=== PATIENT | male | born 1965 | race Caucasian/White ===

== ENCOUNTER 2018-07-06 12:29 | Emergency (ER) | payer BC, OTHER ==
[2018-07-06 13:57] LABS: INFLUENZA A NEGATIVE (NEGATIVE); INFLUENZA B NEGATIVE (NEGATIVE)
[2018-07-06 15:41] LABS: HEMATOCRIT 42.7 % (42.0-52.0); HEMOGLOBIN 14.6 gm/dl (14.0-18.0); MEAN CELL VOLUME 89.5 fl (81-97); MEAN CORPUSCULAR HEMOGLOBIN 30.6 pg (27-33); MEAN CORPUSCULAR HGB CONC 34.2 g/dl (32-36); MEAN PLATELET VOLUME 10.9 fl (7.4-10.4); PLATELET COUNT 138 K/uL (130-400); RED BLOOD COUNT 4.77 M/uL (4.40-5.70); RED CELL DISTRIBUTION WIDTH 12.3 % (11.5-14.5)
[2018-07-06 15:50] LABS: BLOOD UREA NITROGEN 15 mg/dL (6-20); CREATININE 1.2 mg/dL (0.7-1.2); EST GLOMERULAR FILTRATION RATE > 60 mL/min
[2018-07-06 15:53] LABS: GLUCOSE,RANDOM 107 mg/dL (74-109)
--- NOTE | 2018-07-06 16:38 | Emergency Department Record ---
History of Present Illness - General Chief complaint: Flu Like Symptoms Stated complaint: BODY ACHE/FEVER Time Seen by Provider: 07/06/18 13:14 Source: Patient Mode of Arrival: Ambulatory Limitations: No limitations - History of Present Illness Initial comments: pt has been sick for days with fever, sob, body aches and cough MD Complaint: Lack of energy Onset/Timin -: Days(s) Location: Generalized Consistency: Constant Improves with: None Worsens with: None Associated Symptoms: Myalgias - [place] Coma Scale Eye Response: (4) Open spontaneously Motor Response: (6) Obeys commands Verbal Response: (5) Oriented [place] Total: 15 - Related Data Previous Rx's Medication Instructions Recorded Amoxicillin/Potassium Clav 1 tab PO BID #20 tab 07/06/18 [Augmentin 875-125 Tablet] Allergies Allergy/AdvReac Type Severity Reaction Status Date / Time codeine Allergy RASH Verified 07/06/18 12:56 hydrocodone bitartrate Allergy RASH Verified 07/06/18 12:56 [From Vicodin] Travel Screening - Travel/Exposure Within Last 30 Days Have you traveled within the last 30 days?: Yes Location Detail:: [facility],[place], [place], [place] - Travel/Exposure Within Last Year Have you traveled outside the [place] in the last year?: No - Additonal Travel Details Have you been exposed to anyone with a communicable illness?: No - Travel Symptoms Symptom Screening: None Review of Systems Reviewed: No additional complaints except as noted below Constitutional: Reports: As per HPI. Denies: Chills, Fever, Malaise, Night sweats, Weakness, Weight change Eyes: Reports: As per HPI. Denies: Eye discharge, Eye pain, Photophobia, Vision change ENT: Reports: As per HPI. Denies: Congestion, Dental pain, Ear pain, Epistaxis , Hearing loss, Throat pain Respiratory: Reports: As per HPI, Cough. Denies: Dyspnea, Hemoptysis, Stridor, Wheezes Cardiovascular: Reports: As per HPI. Denies: Arrhythmia, Chest pain, Dyspnea on exertion, Edema, Murmurs, Orthopnea, Palpitations, Paroxysmal nocturnal dyspnea, Rheumatic Fever, Syncope Endocrine: Reports: As per HPI. Denies: Fatigue, Heat or cold intolerance, Polydipsia, Polyuria Gastrointestinal: Reports: As per HPI. Denies: Abdominal pain, Constipation, Diarrhea, Hematemesis, Hematochezia, Melena, Nausea, Vomiting Genitourinary: Reports: As per HPI. Denies: Dysuria, Frequency, Hematuria, Incontinence, Retention, Testicular pain, Testicular mass, Urgency Musculoskeletal: Reports: As per HPI. Denies: Arthralgia, Back pain, Gout, Joint swelling, Myalgia, Neck pain Skin: Reports: As per HPI. Denies: Bruising, Change in color, Change in hair/ nails, Lesions, Pruritus, Rash Neurological: Reports: As per HPI. Denies: Abnormal gait, Confusion, Headache, Numbness, Paresthesias, Seizure, Tingling, Tremors, Vertigo, Weakness Psychiatric: Reports: As per HPI. Denies: Anxiety, Auditory hallucinations, Depression, Homicidal thoughts, Suicidal thoughts, Visual hallucinations Hematological/Lymphatic: Reports: As per HPI. Denies: Anemia, Blood Clots, Easy bleeding, Easy bruising, Swollen glands Past Medical History - SOCIAL HISTORY Smoking Status: Current every day smoker Alcohol Use: None Drug Use: None - RESPIRATORY Hx Respiratory Disorders: No - CARDIOVASCULAR Hx Cardio Disorders: No - NEURO Hx Neuro Disorders: No - GI Hx GI Disorders: No - Hx Genitourinary Disorders: No - ENDOCRINE Hx Endocrine Disorders: No - MUSCULOSKELETAL Hx Musculoskeletal Disorders: No - PSYCH Hx Psych Problems: No - HEMATOLOGY/ONCOLOGY Hx Hematology/Oncology Disorders: No Family Medical History Any Significant Family History?: No Physical Exam - General General Appearance: Alert, Oriented x3, Cooperative, Moderate distress - Head Head exam: Normal inspection - Eye Eye exam: Normal appearance, PERRL, EOMI Pupils: Normal accommodation - ENT ENT exam: Normal exam, Mucous membranes moist, Normal external ear exam, Normal orophraynx Ear exam: Normal external inspection. negative: External canal tenderness Nasal Exam: Normal inspection. negative: Discharge, Sinus tenderness Mouth exam: Normal external inspection, Tongue normal Teeth exam: Normal inspection. negative: Dental caries Throat exam: Normal inspection. negative: Tonsillar erythema, Tonsillar exudate - Neck Neck exam: Normal inspection, Full ROM. negative: Tenderness - Respiratory Respiratory exam: Rales, Respiratory distress. negative: Normal lung sounds bilaterally - Cardiovascular Cardiovascular Exam: Regular rate, Normal rhythm, Normal heart sounds - GI/Abdominal GI/Abdominal exam: Soft, Normal bowel sounds. negative: Tenderness - Rectal Rectal exam: Deferred - exam: Deferred - Extremities Extremities exam: Normal inspection, Full ROM, Normal capillary refill. negative: Tenderness - Back Back exam: Reports: Normal inspection, Full ROM. Denies: Muscle spasm, Rash noted, Tenderness - Neurological Neurological exam: Alert, CN II-XII intact, Normal gait, Oriented X3 - Psychiatric Psychiatric exam: Normal affect, Normal mood - Skin Skin exam: Dry, Intact, Normal color, Warm Course Vital Signs 07/06/18 12:58 Temperature 98.3 F Pulse Rate 94 H Respiratory 18 Rate Blood Pressure 119/88 Pulse Ox 94 L - Reevaluation(s) Reevaluation #1: 07/06/18 16:55 ct shows pneumonia and possible asbestosis exposure and copd Reevaluation #2: 07/06/18 17:40 pt wants to go home and attempt outpt treatment Medical Decision Making - Lab Data Result diagrams: 07/06/18 15:32 07/06/18 15:32 Lab Results 07/06/18 07/06/18 07/06/18 Range/Units 13:46 15:32 15:32 WBC 12.0 (4.2-12.2) K/uL RBC 4.77 (4.40-5.70) M/uL Hgb 14.6 (14.0-18.0) gm/dl Hct 42.7 (42.0-52.0) % MCV 89.5 (81-97) fl MCH 30.6 (27-33) pg MCHC 34.2 (32-36) g/dl RDW 12.3 (11.5-14.5) % Plt Count 138 (130-400) K/uL MPV 10.9 H (7.4-10.4) fl Neutrophils % 81.0 H (47-80) % Band Neutrophils % 0.0 (0-5) % Eosinophils % Not Reportable Basophils % Not Reportable Lymphocytes 9.0 L (16-45) % Monocytes 10.0 H (0-9) % Basophils 0.0 (0-6) % Eosinophil Count 0.0 (0-6) % Sodium 135 L (136-145) mmol/L Potassium 4.5 (3.4-4.5) mmol/L Chloride 97 L (98-107) mmol/L Carbon Dioxide 23.0 (22-29) mmol/L Anion Gap 15.0 (7-16) BUN 15 (6-20) mg/dL Creatinine 1.2 (0.7-1.2) mg/dL Estimated GFR > 60 mL/min Random Glucose 107 (74-109) mg/dL Calcium 8.8 (8.6-10.0) mg/dL Influenza Type A Ag Negative (NEGATIVE) Influenza Type B Ag Negative (NEGATIVE) Disposition Disposition: Discharge Clinical Impression: Coronary artery calcification Pneumonia Qualifiers: Pneumonia type: due to unspecified organism Laterality: left Lung location: lower lobe of lung Qualified Code(s): J18.1 - Lobar pneumonia, unspecified organism Disposition: Home, Self-Care Condition: (1) Good Instructions: Pneumonia (ED) Additional Instructions: follow up with family doctor tomorrow. return sooner if worse. motrin and tylenol. take aspirin 81mg a day. Prescriptions: Amoxicillin/Potassium Clav [Augmentin 875-125 Tablet] 1 tab PO BID #20 tab Forms: Patient Portal Access Quality - Quality Measures Quality Measures: N/A - Blood Pressure Screening Does Patient Have Any of the Following: No Blood Pressure Classification: Pre-Hypertensive BP Reading Systolic Measurement: 119 Diastolic Measurement: 88 Screening for High Blood Pressure: < Pre-Hypertensive BP, F/U Documented > [ [id number]] Pre-Hypertensive Follow-up Interventions: Follow-up with rescreen every year.
[2018-07-06] MEDS ORDERED: AMPICILLIN SODIUM/SULBACTAM NA 3 G in 0.9 % SODIUM CHLORIDE 100ML 100 ML IVPB ONE (16:52)
[2018-07-06] MEDS ORDERED: AMOXICILLIN/POTASSIUM CLAV 875MG/125MG TABLET PO ONE (17:44)
--- NOTE | 2018-07-06 23:00 | RADIOLOGY REPORT ---
EXAM: CHEST 2 VIEWS HISTORY: COUGH, CHILLS, AND BODY ACHES FOR FIVE DAYS. TECHNIQUE: Chest, two-view. COMPARISON: None. FINDINGS: Heart is nonenlarged. There are scattered opacities within the left lung. Given appearance and density , these may relate to pleural plaques, though nonspecific. Please correlate clinically. Previous images unavailable to document stability. No definite focal consolidation or pleural effusion. There is peribronchial thickening. Lungs appear somewhat hyper-aerated, which may relate to emphysematous change/ COPD. Old left clavicular fracture. IMPRESSION: 1. THERE ARE SCATTERED OPACITIES WITHIN THE LEFT LUNG, MOST NOTABLY MEASURING 6 CM WITHIN THE MID LEFT LUNG. PREVIOUS IMAGES ARE UNAVAILABLE TO DOCUMENT STABILITY. CONCEIVABLY, THIS COULD RELATE TO A CALCIFIED PLEURAL PLAQUE, THOUGH OTHER PROCESSES NOT EXCLUDED. CT WOULD BE HELPFUL FOR FURTHER ASSESSMENT. 2. SUGGESTION OF COPD. 3. PERIBRONCHIAL THICKENING. JOB NUMBER: [id number] MTDD
--- NOTE | 2018-07-06 23:15 | CT SCAN REPORT ---
EXAM: CT SCAN CHEST W CONTRAST HISTORY: DIFFICULTY IN BREATHING. TECHNIQUE: Sequential axial images were obtained from the thoracic inlet through the bilateral adrenal glands after intravenous administration of 100 mL of Omnipaque-300 contrast material. Sagittal and coronal reformatted images were performed. FINDINGS: There is coronary artery vascular calcification. There are mildly prominent mediastinal lymph nodes measuring 10 mm in maximal short axis diameter. There are ground glass air-space opacities in the upper lobes and left lower lobe. There are pleural/parenchymal bands. There is calcification of the left pleura, likely related to previous asbestos exposure. The visualized upper abdominal structures are normal. IMPRESSION: 1. FINDINGS SUGGESTIVE OF PREVIOUS ASBESTOS EXPOSURE. 2. GROUND-GLASS AIR-SPACE OPACITIES IN THE RIGHT UPPER LOBE AND LEFT LUNG BASE. FINDINGS ARE LIKELY RELATED TO SUPERIMPOSED PNEUMONITIS. FOLLOW-UP TO RESOLUTION IS RECOMMENDED. JOB NUMBER: [id number] MTDD
== END 2018-07-06 18:07 | disposition home or self-care (01) ==
LOC: ER 12:29
DX: J18.1 Lobar pneumonia, unspecified organism (principal); I25.10 Atherosclerotic heart disease of native coronary artery without angina pectoris; J44.9 Chronic obstructive pulmonary disease, unspecified; F17.210 Nicotine dependence, cigarettes, uncomplicated
CPT/HCPCS: 99284 ×2; 96365; 80048; 87400; 85027; 71046; 71260; Q9967; J0295